=== PATIENT | male | born 1955 | race Caucasian/White ===

== ENCOUNTER 2021-05-21 15:47 | Inpatient (IN) | payer MEDICARE, MEDICAID ==
[~2021-05-21] VITALS: Ht 177.8 cm; Wt 207.0 kg
[2021-05-21] MEDS ORDERED: CLEOCIN HCL300 MG PO (16:07)
[2021-05-21] MEDS ORDERED: COZAAR 50MG50 MG/TAB PO (16:08)
[2021-05-21] MEDS ORDERED: ULTRAM 50MG TAB50 MG PO (16:08)
[2021-05-21] MEDS ORDERED: LIPITOR20 MG PO (16:09)
[2021-05-21 16:29] VITALS: BP 132/88; PULSE 78; TEMP 98.9
[2021-05-21 17:15] LABS: PARTIAL THROMBOPLASTIN TIME 42.8 SECONDS (26.0-37.0)
[2021-05-21 20:47] VITALS: BP 133/81; PULSE 77; TEMP 99.2
[2021-05-21 23:44] VITALS: BP 140/83; PULSE 74; TEMP 99
[2021-05-22 02:49] LABS: ALBUMIN 3.7 gm/dL (3.5-5.0); BILIRUBIN,TOTAL 0.5 mg/dL (0.0-1.0); CALCIUM 9.3 mg/dL (8.4-10.2); CREATININE, serum 0.84 (0.66-1.25); POTASSIUM 3.8 mmol/L (3.4-5.0); TOTAL PROTEIN 7.4 gm/dL (6.4-8.2)
[2021-05-22 04:36] VITALS: BP 136/79; PULSE 74; TEMP 97.9
[2021-05-22 07:16] VITALS: BP 133/79; PULSE 65; TEMP 98.5
[2021-05-22 09:31] LABS: PARTIAL THROMBOPLASTIN TIME 83.7 SECONDS (26.0-37.0)
[2021-05-22 10:20] LABS: INR 1.2 (0.8-3.0); PROTHROMBIN TIME 13.7 SECONDS (9.7-12.8)
[2021-05-22 11:25] VITALS: BP 104/68; PULSE 84; TEMP 97.7
[2021-05-22 17:10] VITALS: BP 106/67; PULSE 66; TEMP 97.7
[2021-05-22 19:54] VITALS: BP 118/76; PULSE 65; TEMP 98.9
[2021-05-23 00:51] VITALS: BP 121/72; PULSE 64; TEMP 98
[2021-05-23 04:19] VITALS: BP 104/49; PULSE 67; TEMP 97.6
[2021-05-23 07:20] LABS: BASO % 0.4 % (0.0-2.0); CALCIUM 9.3 mg/dL (8.4-10.2); CREATININE, serum 0.92 (0.66-1.25); EOS # 0.6 (0.0-0.7); EOS % 5.7 % (0-4.0); GRAN # 7.2 (1.4-6.5); GRAN % 68.2 % (42.2-75.2); HEMATOCRIT 40.6 % (42.0-52.0); HEMOGLOBIN 12.8 g/dl (13.5-18.0); LYMPH # 1.8 (1.2-3.4); LYMPH % 16.6 % (20.0-51.0); MEAN CELL VOLUME 97 fl (80.0-100.0); MEAN CORPUSCULAR HEMOGLOBIN 31 pg (27.0-31.0); MEAN CORPUSCULAR HGB CONC 32 g/dl (33.0-37.0); MEAN PLATELET VOLUME 10.8 fl (7.4-10.4); MONO # 0.9 (0.1-0.6); MONO % 8.7 % (1.7-9.3); PLATELET COUNT 271 K/mm3 (130-400); POTASSIUM 3.9 mmol/L (3.4-5.0); REDCELL DISTRIBUTION WIDTH-CV 13.6 % (11.5-14.5)
[2021-05-23 07:29] LABS: INR 1.2 (0.8-3.0); PROTHROMBIN TIME 12.9 SECONDS (9.7-12.8)
[2021-05-23 07:36] VITALS: BP 126/65; PULSE 67; TEMP 98.5
[2021-05-23 12:00] VITALS: BP 126/81; PULSE 72; TEMP 98.6
[2021-05-23 16:43] VITALS: BP 129/74; PULSE 76; TEMP 98.8
[2021-05-23 19:52] VITALS: BP 131/66; PULSE 73; TEMP 99.1
[2021-05-24 03:55] VITALS: BP 140/61; PULSE 75; TEMP 98.3
[2021-05-24 07:15] LABS: BASO % 0.3 % (0.0-2.0); EOS # 0.5 (0.0-0.7); EOS % 5.3 % (0-4.0); GRAN # 6.1 (1.4-6.5); GRAN % 68.7 % (42.2-75.2); HEMATOCRIT 42.9 % (42.0-52.0); HEMOGLOBIN 13.7 g/dl (13.5-18.0); LYMPH # 1.5 (1.2-3.4); LYMPH % 16.4 % (20.0-51.0); MEAN CELL VOLUME 95 fl (80.0-100.0); MEAN CORPUSCULAR HEMOGLOBIN 30 pg (27.0-31.0); MEAN CORPUSCULAR HGB CONC 32 g/dl (33.0-37.0); MEAN PLATELET VOLUME 10.7 fl (7.4-10.4); MONO # 0.8 (0.1-0.6); PLATELET COUNT 278 K/mm3 (130-400); REDCELL DISTRIBUTION WIDTH-CV 13.5 % (11.5-14.5)
[2021-05-24 07:22] LABS: INR 1.3 (0.8-3.0)
[2021-05-24 07:32] LABS: CALCIUM 9.4 mg/dL (8.4-10.2); CREATININE, serum 0.79 (0.66-1.25); POTASSIUM 3.9 mmol/L (3.4-5.0)
[2021-05-24 07:46] VITALS: BP 136/85; PULSE 62; TEMP 98.7
[2021-05-24 12:03] VITALS: BP 138/78; PULSE 77; TEMP 98.4
[2021-05-24 16:21] VITALS: BP 140/60; PULSE 71; TEMP 98.9
[2021-05-24 22:12] VITALS: BP 144/85; PULSE 65; TEMP 97.9
[2021-05-24 23:54] VITALS: BP 142/67; PULSE 70; TEMP 97.7
[2021-05-25 04:29] VITALS: BP 151/92; PULSE 67; TEMP 97.6
[2021-05-25 07:52] LABS: BASO % 0.3 % (0.0-2.0); EOS # 0.5 (0.0-0.7); EOS % 5.4 % (0-4.0); GRAN # 6.3 (1.4-6.5); GRAN % 66.4 % (42.2-75.2); HEMATOCRIT 41.6 % (42.0-52.0); HEMOGLOBIN 13.4 g/dl (13.5-18.0); LYMPH # 1.7 (1.2-3.4); LYMPH % 18.2 % (20.0-51.0); MEAN CELL VOLUME 97 fl (80.0-100.0); MEAN CORPUSCULAR HEMOGLOBIN 31 pg (27.0-31.0); MEAN CORPUSCULAR HGB CONC 32 g/dl (33.0-37.0); MEAN PLATELET VOLUME 10.5 fl (7.4-10.4); MONO # 0.9 (0.1-0.6); MONO % 9.3 % (1.7-9.3); PLATELET COUNT 303 K/mm3 (130-400); RED BLOOD COUNT 4.31 M/mm3 (4.20-5.60); REDCELL DISTRIBUTION WIDTH-CV 13.5 % (11.5-14.5)
[2021-05-25 08:01] LABS: INR 1.8 (0.8-3.0); PROTHROMBIN TIME 19.7 SECONDS (9.7-12.8)
[2021-05-25 08:05] LABS: CALCIUM 9.3 mg/dL (8.4-10.2); CREATININE, serum 0.71 (0.66-1.25)
[2021-05-25] MEDS ORDERED: LOVENOX 100100 MG/ML SQ (09:13)
[2021-05-25] MEDS ORDERED: COUMADIN4 MG PO (09:14)
[2021-05-25] MEDS ORDERED: DOXYCYCLINE HY100 MG PO (09:18)
[2021-05-25 09:27] VITALS: BP 145/82; PULSE 72; TEMP 97.9
== END 2021-05-25 11:39 | disposition home or self-care (01) | DRG 175 ==
LOC: MEDICAL 15:47
PROVIDERS: Physician Assistant; Student in an Organized Health Care Education/Training Program; ADMIT Internal Medicine
DX: I26.99 Other pulmonary embolism without acute cor pulmonale (principal); J96.01 Acute respiratory failure with hypoxia; L03.116 Cellulitis of left lower limb; F17.200 Nicotine dependence, unspecified, uncomplicated; E66.01 Morbid (severe) obesity due to excess calories; T36.8X5A Adverse effect of other systemic antibiotics, initial encounter
CPT/HCPCS: 99222-AI; 99232-AI; 99239; J0696; J1644; J1650; J3370; J7050

== ENCOUNTER 2022-01-24 10:38 | Day surgery (SDC) | payer MEDICARE, MEDICAID ==
[2022-01-24] VITALS (10 sets, daily range): BP systolic 90–134; BP diastolic 47–83; PULSE 62–77; TEMP 97.2–97.9
[~2022-01-24] VITALS: Ht 177.8 cm; Wt 201.3 kg
[~2022-01-24 10:38] MED LIST: CLEOCIN HCL300 MG PO; COUMADIN4 MG PO; COZAAR 50MG50 MG/TAB PO; DOXYCYCLINE HY100 MG PO; LIPITOR20 MG PO; LOVENOX 100100 MG/ML SQ; ULTRAM 50MG TAB50 MG PO
--- NOTE | 2022-01-24 17:31 | NUR ---
PT TO ROOM 345 PER BED WITH REPORT FROM FRANCHES[employer]PER @[id number]. PT IS A/O X3. LUNGS CTS, PT IS A/O X3. INCISION TO RIGHT BREAST CDI. DRAIN TO RIGHT SIDE WITH SEROSANGUENOUS DRAINAGE. IV TO PUMP PER ORDERS. SCDS BIALATERALLY.
--- NOTE | 2022-01-24 20:39 | NUR ---
Patient laying quietly in bed, watching television. JETT drain to right breast was drained and provided 50cc of sanguineous drainage. Patient denies pain to this area and has no other complaints at this time. Call light within reach.
--- NOTE | 2022-01-24 23:11 | NUR ---
Report received from ADRIEL Chacon. Patient is here due to right lymph resection and right masectomy. Patient has a JETT drain to the right chest that is draining sanguinous blood. Patient has no complaints of pain. Full body assessment completed and postop vitals are WNL. Patient is anticipated to discharge the afternoon of 01/25. Patient is tolerating oral fluids well. Patient has no other complaints at this time, patient is resting quietly in bed. Call light within reach.
[2022-01-25 00:03] VITALS: BP 100/46; PULSE 73; TEMP 98.1
--- NOTE | 2022-01-25 02:04 | NUR ---
LR has completed VTBI. IV disconnected from pump. Patient has no complaints and IV site is free of redness or edema. Educated to the patient that IV cannot be removed until prior to discharge.
[2022-01-25 03:40] VITALS: BP 140/72; PULSE 73; TEMP 97.7
--- NOTE | 2022-01-25 03:55 | NUR ---
Patient lying in bed sleeping. This nurse was notified by the PCT that the patients O2 was at 87. Patient has a history of sleep apnea but does not utilize a CPAP or BiPAP. This nurse applied a NC at 2L and elevated the head of the patients bed to promote oxygenation. Per report from day shift the patient had been using the NC intermittently throughout the day.
--- NOTE | 2022-01-25 05:09 | NUR ---
Patient reassessed, O2 increased to 95% with 2L via NC.
[2022-01-25 07:42] VITALS: BP 130/74; PULSE 74; TEMP 98.5
--- NOTE | 2022-01-25 07:42 | NUR ---
PT HAS CHEWING TOBACCO IN ROOM. EDUCATED PT ON HOSPITAL POLICY RE:NO TOBACCO POLICY. PT NOT HAPPY WITH POLICY AND TRIES TO GET STAFF TO GET IT FROM HIS BELONGINGS.
--- NOTE | 2022-01-25 09:22 | NUR ---
HELEN met with the patient to discuss discharge plan. The patient lives in [place] with his mother, April. He states that his mother is safe at home alone. He reports independence with ADLs and does not have any DME. The patient's PCP is Dr. Katiuska Chambers and he receives his medications from [facility]. The patient does not have a DPOA-HC and he was not interested in completing one at this time. The patient is not , does not have any children, and states that his father is not alive. His mother is his next-of-kin. HELEN notified the patient of this. The patient does not have her number or an emergency contact on file. HELEN inquired about her phone number. The patient declined to give his mother's number to HELEN and he did not want to give HELEN any other family information for an emergency contact. The patient plans on returning home with his mother upon discharge. No additional needs at this time. *Discharge plan: home with mother*
--- NOTE | 2022-01-25 10:01 | NUR ---
Initial visit; Patient thanked Basic Sciences Professor for looking in on him, visiting and keeping him in her prayers.
--- NOTE | 2022-01-25 10:38 | NUR ---
PT UP TO RECLINER FOR BREAKFAST AFTER USING BATHROOM. DRESSING TO RIGHT CHEST CDI. PLAN ON DISCHARGE LATER THIS PM AFTER CLINIC HRS. PT EATING AND DRINKING WITH NO N/V.
[2022-01-25 12:29] VITALS: BP 115/62; PULSE 76; TEMP 98.4
[2022-01-25 15:54] VITALS: BP 111/65; PULSE 77; TEMP 98.6
[2022-01-25] MEDS ORDERED: NORCO 325 MG-51 TAB PO (17:10)
--- NOTE | 2022-01-25 18:06 | NUR ---
GAVE INSTRUCTIONS ON DRAIN CARE AND GENERAL DISCHARGE INSTRUCTIONS. PT VERBALIZED UNDERSTANDING.
== END 2022-01-25 17:45 | disposition home or self-care (01) ==
LOC: SURG 10:38 → SDCO 10:38 → SURG 15:20 → SDCO 01-25 17:45
DX: C50.921 Malignant neoplasm of unspecified site of right male breast (principal); E66.01 Morbid (severe) obesity due to excess calories; Z79.01 Long term (current) use of anticoagulants
CPT/HCPCS: OP; A9520; J0690; J1100; J2250; J2370; J2405; J2704; J2795; J3010; J7050; J7120; Q9968

== ENCOUNTER 2022-02-27 10:01 | Outpatient (RCR) | payer MEDICARE, OTHER, MEDICAID ==
[~2022-02-27] VITALS: Ht 177.8 cm; Wt 196.8 kg
[~2022-02-27 10:01] MED LIST changes: +NORCO 325 MG-51 TAB PO
[2022-02-27 11:30] VITALS: BP 118/72; PULSE 71; TEMP 97.7
[2022-02-27 11:43] LABS: HEMATOCRIT 39.9 % (42.0-52.0); HEMOGLOBIN 12.8 g/dl (13.5-18.0); MEAN CELL VOLUME 96 fl (80.0-100.0); MEAN CORPUSCULAR HEMOGLOBIN 31 pg (27-31); MEAN CORPUSCULAR HGB CONC 32 g/dl (33.0-37.0); MEAN PLATELET VOLUME 9.5 fl (7.4-10.4); PLATELET COUNT 251 K/mm3 (130-400); RED BLOOD COUNT 4.17 M/mm3 (4.20-5.60); REDCELL DISTRIBUTION WIDTH-CV 13.3 % (11.5-14.5)
[2022-02-27 11:58] LABS: ALBUMIN 3.2 gm/dL (3.4-4.8); BILIRUBIN,TOTAL 0.5 mg/dL (0.2-1.2); CREATININE, serum 0.91 mg/dL (0.72-1.25); POTASSIUM 3.8 mmol/L (3.5-4.5); TOTAL PROTEIN 6.4 gm/dL (6.2-8.1)
[2022-02-27 12:03] LABS: BAND 8 % (0-10); LYMPHOCYTE 19 % (20.0-51.0); NEUTROPHILS 64 % (42.0-75.2); PLATELET ESTIMATE NORMAL (NORMAL)
[2022-02-27] MEDS ORDERED: ELIQUIS 5MG PO (12:46)
== END 2022-02-27 11:45 | disposition home or self-care (01) ==
LOC: EUO 10:01
PROVIDERS: Internal Medicine
DX: C50.421 Malignant neoplasm of upper-outer quadrant of right male breast (principal)
CPT/HCPCS: C1751; C1892